=== PATIENT | female | born 1945 | race Caucasian/White ===

== ENCOUNTER 2017-06-27 15:27 | Inpatient (IN) | payer MEDICARE, OTHER ==
[~2017-06-27] VITALS: Ht 167.6 cm; Wt 57.8 kg
[2017-06-27] MEDS ORDERED: ASPI-496 PO (15:51)
[2017-06-27] MEDS ORDERED: IBUP200C8 PO (15:51)
[2017-06-27] MEDS ORDERED: SODIUM CHLORIDE 0.9% 1,000 ML IV ONE (16:15)
[2017-06-27] MEDS ORDERED: FAMOTIDINE 20 MG/2 ML IVP ONE (16:30)
[2017-06-27] MEDS ORDERED: SODIUM CHLORIDE FLUSH 10ML SYR IVF ONE (16:30)
[2017-06-27] MEDS ORDERED: SODIUM CHLORIDE 0.9% 1,000ML IVBOLUS ONE ×2 (16:30→17:30)
[2017-06-27 16:39] LABS: MEAN CORPUSCULAR HEMOGLOBIN 29.6 pg (27.0-34.8); MEAN CORPUSCULAR HGB CONC 33.3 g/dL (32.4-35.8); MEAN CORPUSCULAR VOLUME 88.8 fL (80-100); MEAN PLATELET VOLUME 9.7 fL (7.4-10.4); PLATELET COUNT 253 x10^3/uL (130-400); RED BLOOD COUNT 6.27 x10^6/uL (3.82-5.3); RED CELL DISTRIBUTION WIDTH 12.8 % (9.6-15.2)
[2017-06-27] MEDS ORDERED: FAMOTIDINE 20 MG/2 ML ONE (16:40)
[2017-06-27 16:49] LABS: INTERNATIONAL NORMALIZED RATIO 1.54 (0.93-1.1); PROTHROMBIN TIME 15.9 Seconds (9.6-11.5)
[2017-06-27 16:52] LABS: ALANINE AMINOTRANSFERASE 22 U/L (12-78); ALBUMIN 2.5 g/dL (3.4-5.0); ANION GAP 28 mmol/L (5-15); CALCIUM 7.1 mg/dL (8.5-10.1); CHLORIDE 66 mmol/L (98-107)
[2017-06-27 16:56] LABS: ALKALINE PHOSPHATASE 102 U/L (45-117); BILIRUBIN,TOTAL 0.7 mg/dL (0.2-1.0); FREE T4 (FREE THYROXINE) 0.91 ng/dL (0.76-1.46); TOTAL PROTEIN 7.1 g/dL (6.4-8.2)
[2017-06-27 17:06] LABS: MD YES
[2017-06-27 17:09] LABS: <PLATELET ESTIMATE> ADEQUATE; ANISOCYTOSIS 1+; BAND#(MANUAL) 2.87 x10^3/uL; BANDS%(MANUAL) 10 % (0-7); LYMPH#(MANUAL) 0.57 x10^3/uL (1-3.4); LYMPHS% (MANUAL) 2 % (22-44); MONOS#(MANUAL) 1.44 x10^3/uL (0.3-2.7); MONOS% (MANUAL) 5 % (2-9); SEG#(MANUAL) 23.82 x10^3/uL (1.8-6.8); SEGS% (MANUAL) 83 % (42-75)
[2017-06-27 17:10] LABS: LARGE PLATELETS 1+
[2017-06-27 17:41] LABS: TROPONIN I 0.197 ng/mL (0.000-0.045)
[2017-06-27] MEDS ORDERED: ASPIRIN 81 MG TABLET CHEW PO ONE (18:00)
[2017-06-27] MEDS ORDERED: ASPIRIN 81 MG TABLET EC ONE (19:00)
[2017-06-27] MEDS ORDERED: ASPIRIN 81 MG TABLET CHEW ONE (19:09)
[2017-06-27] MEDS ORDERED: POTASSIUM CHLORIDE 20 MEQ in LACTATED RINGERS 1,000 ML IV SCH (19:33)
[2017-06-27] MEDS ORDERED: SODIUM CHLORIDE 0.9%, 500ML IVBOLUS PRN (20:00)
[2017-06-27 21:05] VITALS: BP 89/58
[2017-06-27] MEDS ORDERED: SODIUM CHLORIDE 0.9%, 500ML IVBOLUS ONE (21:30)
[2017-06-27] MEDS: POTASSIUM CHLORIDE 20 MEQ in LACTATED RINGERS 1,000 ML IV SCH (22:00)
[2017-06-27] MEDS ORDERED: MORPHINE SULFATE 4 MG/ML, 1ML IVPush PRN (22:00)
[2017-06-27 22:43] LABS: TROPONIN I 0.208 ng/mL (0.000-0.045)
[2017-06-28 00:22] LABS: HEMOGLOBIN A1C 7.3 % (4.2-6.3)
[2017-06-28] MEDS ORDERED: CEFTRIAXONE PMX 1GM/50ML 50 ML IV SCH (00:30)
[2017-06-28 00:36] VITALS: BP 80/53
[2017-06-28 00:38] LABS: CULTURE INDICATED? YES; MICROSCOPIC INDICATED
[2017-06-28 00:40] LABS: CHLORIDE,URINE RANDOM 14 mmol/L; POTASSIUM,URINE RANDOM 63 mmol/L; SODIUM,URINE RANDOM 22 mmol/L; TOTAL PROTEIN,URINE RANDOM 83 mg/dL (0-12)
[2017-06-28] MEDS ORDERED: LACTATED RINGERS 500 ML IVBOLUS ONE (01:00)
[2017-06-28] MEDS ORDERED: BISACODYL 10 MG SUPP PR PRN (01:00)
[2017-06-28 01:52] VITALS: BP 88/54
[2017-06-28] MEDS: POTASSIUM CHLORIDE 20 MEQ in LACTATED RINGERS 1,000 ML IV SCH (02:03)
[2017-06-28 02:05] VITALS: BP 90/60
[2017-06-28 06:02] LABS: MEAN CORPUSCULAR HEMOGLOBIN 29.9 pg (27.0-34.8); MEAN CORPUSCULAR HGB CONC 33.6 g/dL (32.4-35.8); MEAN CORPUSCULAR VOLUME 89.1 fL (80-100); PLATELET COUNT 191 x10^3/uL (130-400); RED BLOOD COUNT 5.54 x10^6/uL (3.82-5.3)
[2017-06-28 06:11] LABS: ANION GAP 22 mmol/L (5-15); CALCIUM 6.5 mg/dL (8.5-10.1); CHLORIDE 80 mmol/L (98-107)
[2017-06-28 06:15] LABS: MD YES
[2017-06-28 06:16] LABS: ALANINE AMINOTRANSFERASE 18 U/L (12-78); ALKALINE PHOSPHATASE 90 U/L (45-117); BILIRUBIN,TOTAL 0.5 mg/dL (0.2-1.0); CHOL/HDL RATIO 4.1; CHOLESTEROL, TOTAL 135 mg/dL (140-239); HDL CHOL % 24 % (28-40); HDL CHOLESTEROL (DIRECT) 33 mg/dL (40-60); LDL CHOLESTEROL,CALCULATED 39 mg/dL (54-169); LDL/HDL RATIO 1.2 (0.5-3.0); TOTAL PROTEIN 5.6 g/dL (6.4-8.2); TRIGLYCERIDES 314 mg/dL (50-200); TROPONIN I 0.184 ng/mL (0.000-0.045); VLDL CHOLESTEROL 63 mg/dL (0-25)
[2017-06-28 06:17] LABS: <PLATELET ESTIMATE> ADEQUATE; ANISOCYTOSIS 1+; BAND#(MANUAL) 1.07 x10^3/uL; BANDS%(MANUAL) 4 % (0-7); LARGE PLATELETS 1+; LYMPH#(MANUAL) 1.07 x10^3/uL (1-3.4); LYMPHS% (MANUAL) 4 % (22-44); MONOS% (MANUAL) 3 % (2-9); SEG#(MANUAL) 23.85 x10^3/uL (1.8-6.8); SEGS% (MANUAL) 89 % (42-75)
[2017-06-28 07:48] VITALS: BP 82/51
[2017-06-28] MEDS ORDERED: SODIUM CHLORIDE 0.9% 1,000 ML IV SCH (11:00)
[2017-06-28 12:29] VITALS: BP 93/67
[2017-06-28] MEDS ORDERED: DEXTROSE 50%, 50ML SYRINGE IVPush PRN (14:00)
[2017-06-28] MEDS ORDERED: DEXTROSE 4 GM TAB.CHEW PO PRN (14:00)
[2017-06-28] MEDS ORDERED: CEFTRIAXONE PMX 2GM/50ML 50 ML IV SCH (14:00)
[2017-06-28] MEDS ORDERED: GLUCAGON 1 MG IM PRN (14:00)
[2017-06-28] MEDS ORDERED: INSULIN REGULAR 100 UNITS/ML, 3ML VIAL SQ-INSULIN SCH (16:00)
[2017-06-28] MEDS ORDERED: MORPHINE SULFATE 4 MG/ML, 1ML IVPush PRN (17:30)
[2017-06-28] MEDS ORDERED: HALOPERIDOL 2 MG/ML ORAL SOL SL PRN (17:30)
[2017-06-28] MEDS ORDERED: morphine SULFATE ORAL.CONC 20 MG/ML BC PRN (17:30)
[2017-06-28] MEDS ORDERED: PROCHLORPERAZINE 5 MG/ML, 2ML IVPush PRN (17:30)
[2017-06-28] MEDS ORDERED: HALOPERIDOL 0.5 MG TABLET PO PRN (17:30)
[2017-06-28] MEDS ORDERED: SCOPOLAMINE PATCH, 1.5MG PATCH.TD72 TD PRN (18:00)
[2017-06-28] MEDS ORDERED: POTASSIUM CHLORIDE 20 MEQ in LACTATED RINGERS 1,000 ML IV SCH (19:33)
[2017-06-28 19:37] VITALS: BP 87/58
[2017-06-28] MEDS: SODIUM CHLORIDE FLUSH 10ML SYR IVF SCH (20:30)
[2017-06-28] MEDS: MORPHINE SULFATE 4 MG/ML, 1ML IVPush PRN (22:43)
[2017-06-28] MEDS: LACTATED RINGERS 1,000 ML IV SCH (22:43)
[2017-06-29 00:57] VITALS: BP 114/68
[2017-06-29] MEDS: MORPHINE SULFATE 4 MG/ML, 1ML IVPush PRN ×4 (03:54→13:46)
[2017-06-29] MEDS: LACTATED RINGERS 1,000 ML IV SCH (05:21)
[2017-06-29 07:43] VITALS: BP 92/56
[2017-06-29 07:50] LABS: MEAN CORPUSCULAR HEMOGLOBIN 29.7 pg (27.0-34.8); MEAN CORPUSCULAR HGB CONC 33.5 g/dL (32.4-35.8); MEAN CORPUSCULAR VOLUME 88.7 fL (80-100); MEAN PLATELET VOLUME 9.6 fL (7.4-10.4); PLATELET COUNT 153 x10^3/uL (130-400); RED BLOOD COUNT 5.58 x10^6/uL (3.82-5.3); RED CELL DISTRIBUTION WIDTH 13.2 % (9.6-15.2)
[2017-06-29 08:02] LABS: ALANINE AMINOTRANSFERASE 19 U/L (12-78); ALBUMIN 1.7 g/dL (3.4-5.0); ANION GAP 20 mmol/L (5-15); CALCIUM 6.4 mg/dL (8.5-10.1); CHLORIDE 86 mmol/L (98-107); CREATININE 8.01 mg/dL (0.55-1.02)
[2017-06-29 08:04] LABS: ALKALINE PHOSPHATASE 77 U/L (45-117); BILIRUBIN,TOTAL 0.4 mg/dL (0.2-1.0); TOTAL PROTEIN 5.1 g/dL (6.4-8.2)
[2017-06-29 08:49] LABS: MD YES
[2017-06-29 08:50] LABS: ANISOCYTOSIS 1+; BAND#(MANUAL) 2.84 x10^3/uL; BANDS%(MANUAL) 10 % (0-7); EOS#(MANUAL) 0.28 x10^3/uL (0.0-0.4); EOS% (MANUAL) 1 % (1-7); MONOS#(MANUAL) 0.85 x10^3/uL (0.3-2.7); MONOS% (MANUAL) 3 % (2-9); SEG#(MANUAL) 24.42 x10^3/uL (1.8-6.8); SEGS% (MANUAL) 86 % (42-75)
[2017-06-29 08:51] LABS: <PLATELET ESTIMATE> ADEQUATE; LARGE PLATELETS 1+
[2017-06-29] MEDS: SODIUM CHLORIDE FLUSH 10ML SYR IVF SCH ×2 (09:00→20:24)
[2017-06-30] MEDS: SODIUM CHLORIDE FLUSH 10ML SYR IVF SCH ×2 (09:39→19:18)
[2017-06-30] MEDS: LORazepam INTENSOL 2 MG/ML PO PRN ×2 (13:48→18:38)
[2017-06-30] MEDS: LORazepam 2 MG/ML, 1ML IV PRN (19:18)
[2017-06-30] MEDS ORDERED: LORazepam 2 MG/ML, 1ML IV PRN ×2 (19:30)
[2017-07-01] MEDS: LORazepam 2 MG/ML, 1ML IV PRN ×3 (08:50→20:12)
[2017-07-01] MEDS: SODIUM CHLORIDE FLUSH 10ML SYR IVF SCH ×2 (08:50→22:57)
== END 2017-07-02 06:30 | disposition expired | DRG 871 ==
LOC: ED 17:27 → EDIP 19:33 → 4WST 20:56 → 3NW 06-29 11:52
PROVIDERS: ADMIT Hospitalist; ATTEND Hospitalist
PROC: 0T9B70Z Drainage of Bladder with Drainage Device, Via Natural or Artificial Opening (ICD-10-PCS; principal; 2017-06-28)
PROC: 0W9G3ZZ Drainage of Peritoneal Cavity, Percutaneous Approach (ICD-10-PCS; 2017-06-28)
DX: A41.9 Sepsis, unspecified organism (principal); N17.0 Acute kidney failure with tubular necrosis; E43 Unspecified severe protein-calorie malnutrition; R18.8 Other ascites; J18.9 Pneumonia, unspecified organism; G92 Toxic encephalopathy; R53.2 Functional quadriplegia; N13.2 Hydronephrosis with renal and ureteral calculous obstruction; D64.9 Anemia, unspecified; E11.65 Type 2 diabetes mellitus with hyperglycemia; N39.0 Urinary tract infection, site not specified; Z68.1 Body mass index [BMI] 19.9 or less, adult; E87.1 Hypo-osmolality and hyponatremia; E07.81 Sick-euthyroid syndrome; E83.51 Hypocalcemia; F12.10 Cannabis abuse, uncomplicated; E87.6 Hypokalemia; K21.9 Gastro-esophageal reflux disease without esophagitis; Z66 Do not resuscitate; Z63.8 Other specified problems related to primary support group; Z81.8 Family history of other mental and behavioral disorders
CPT/HCPCS: 36415; 49083; 74022; 74176; 80053; 80061; 81001; 82043; 82140; 82150; 82306; 82436; 82550; 82570; 82728; 82962; 83036; 83540; 83550; 83605; 83615; 83690; 83735; 83880; 83970; 84100; 84133; 84156; 84300; 84439; 84443; 84484; 85025; 85379; 85610; 85730; 87040; 87070; 87086; 87205; 88112; 88305; 88341; 88342; 89051; 93005; 93306; 96361; 96374; J0696; J2270; J3480; J7120; G0461; J0780; J2060; J7030; S0028